=== PATIENT | male | born 1980 | race Caucasian/White ===

== ENCOUNTER 2018-11-28 15:11 | Emergency (ER) | payer OTHER ==
[~2018-11-28] VITALS: Ht 167.6 cm; Wt 74.8 kg
[2018-11-28 15:48] LABS: URINE BILIRUBIN NEGATIVE (Negative); URINE BLOOD 3+ (Negative); URINE CLARITY CLEAR; URINE COLOR YELLOW; URINE GLUCOSE-RANDOM* NEGATIVE (Negative); URINE KETONES NEGATIVE (Negative); URINE LEUKOCYTES-REFLEX NEGATIVE (Negative); URINE NITRITE-REFLEX NEGATIVE (Negative); URINE PROTEIN (DIPSTICK) 1+ (Negative); URINE UROBILINOGEN 0.2 E.U./dl (0.2-1.0)
[2018-11-28 15:58] LABS: BACTERIA-REFLEX 1-9 Few /HPF (None Seen); CASTS None Seen /LPF (None Seen); CRYSTALS None Seen /LPF (None Seen); SQUAMOUS None Seen /LPF (0-3); URINE RBC >20 Many /HPF (0-2); URINE WBC-REFLEX 0-5 Rare /HPF (0-5)
[2018-11-28 16:30] LABS: ABSOLUTE NEUTROPHILS 5.5 thou/uL (1.4-8.2); EOSINOPHILS 0.5 % (0.0-3.0); HEMATOCRIT 44.3 % (42.0-52.0); HEMOGLOBIN 15.3 gm/dL (14.0-18.0); LYMPHOCYTES 21.3 % (24.0-44.0); MCHC 34.4 g/dL (28.0-37.0); MCV 87.1 fL (80.0-100.0); MONOCYTES 6.9 % (1.0-8.0); PLATELET COUNT 308 thou/uL (150-400); POLYS 70.3 % (36.0-66.0); RBC 5.09 mil/uL (4.50-6.00); RDW 13.2 % (10.5-14.5); WBC 7.8 thou/uL (4.0-11.0)
[2018-11-28 16:39] LABS: CALCIUM 9.7 mg/dL (8.5-10.1); CREATININE 1.3 mg/dL (0.7-1.3); POTASSIUM 3.9 mmol/L (3.5-5.1)
[2018-11-28 16:48] LABS: ALBUMIN 4.3 g/dL (3.4-5.0); TOTAL BILIRUBIN 0.2 mg/dL (<0.1-1.0)
[2018-11-28 17:42] VITALS: BP 126/86
--- NOTE | 2018-11-29 07:54 | EKG ---
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: [place] : 1980 Requested By: Liberty Jhaveri Order Number: [id number] MD: Sergo Locke Measurements Intervals [place] Rate: 71 P: 33 [place]: 139 QRS: -42 QRSD: 104 T: 12 QT: 401 QTc: 436 Interpretive Statements Sinus rhythm Multiple ventricular premature complexes Left axis deviation Poor R wave progression No previous ECG available for comparison Electronically Signed On 11-29-2018 7:54:36 CDT by Sergo Locke [email or web address] ��������������������������������������������� <ELECTRONICALLY SIGNED> ���������������������������������������� By: Sergo Locke MD, [facility] ��������������������������������������������� 11/29/18 [id number] 1820 19 Sergo Locke MD, FACC /EPI
== END 2018-11-28 21:10 | disposition short-term general hospital (02) ==
LOC: ER 15:11
PROVIDERS: Nurse Practitioner Family; Physician Assistant; Student in an Organized Health Care Education/Training Program
DX: N20.1 Calculus of ureter (principal); N13.4 Hydroureter; F17.210 Nicotine dependence, cigarettes, uncomplicated